=== PATIENT | female | born 1990 | race Two or more races ===

== ENCOUNTER 2017-04-29 12:49 | Inpatient (IN) | payer MEDICAID ==
[~2017-04-29] VITALS: Ht 154.9 cm; Wt 75.3 kg
[2017-04-29] MEDS ORDERED: LIDOCAINE 1% PF 30 ML VIAL. INJ PRN (15:30)
[2017-04-29] MEDS ORDERED: 0.9 % SODIUM CHLORIDE 10 ML DISP.SYRIN. IV PRN ×2 (15:30→20:15)
[2017-04-29] MEDS ORDERED: OXYTOCIN 30 UNIT/500 ML PREMIX 500 ML IV PRN ×3 (15:30→20:15)
[2017-04-29] MEDS ORDERED: IV RINGERS,LACTATED 1000ML 1,000 ML IV PRN (15:30)
[2017-04-29] MEDS ORDERED: fentaNYL PF VIAL 100 MCG/2 ML VIAL IV PRN (15:30)
[2017-04-29 15:45] LABS: BASO % 0 % (0-3); EOS % 0 % (0-3); HEMATOCRIT 33.7 % (36.0-47.0); HEMOGLOBIN 11.2 g/dL (12.0-15.5); LYMPH # 1.5 x10^3/uL (1.0-4.8); LYMPH % 14 % (24-48); MEAN CORPUSCULAR HEMOGLOBIN 30 pg (25-35); MEAN CORPUSCULAR HGB CONC 33 g/dL (31-37); MEAN CORPUSCULAR VOLUME 90 fL (79-100); MONO % 6 % (0-9); NEUT % 80 % (31-73); PLATELET COUNT 170 x10^3/uL (140-400); RED BLOOD COUNT 3.74 x10^6/uL (3.50-5.40); RED CELL DISTRIBUTION WIDTH 14.2 % (11.5-14.5); WHITE BLOOD COUNT 10.7 x10^3/uL (4.0-11.0)
[2017-04-29] MEDS ORDERED: AMPICILLIN SODIUM 2 GM in IV NORMAL SALINE 100ML 100 ML IV ONE (16:00)
[2017-04-29 16:45] VITALS: BP 114/69
[2017-04-29] MEDS ORDERED: AMPICILLIN SODIUM 1 GM in IV NORMAL SALINE 50ML 50 ML IV SCH (20:00)
--- NOTE | 2017-04-29 20:11 | PDOC1 ---
OB - History Hx of Present Care: Good Care Ultrasounds: Normal mid trimester US Obstetrical Complications: None Medical Complications: None Past Family/Social History * Past Medical, Surgical, Family and Obstetric Histories reviewed from chart. Rubella: Immune RPR/VDRL: Negative GBS Status: Negative HBsAG: Negative OB - Chief Complaint & HPI Date of Admission: Date of Admission: Apr 29, 2017 at 12:49 Chief Complaint/History : 3 Para: 2 EGA: 40 Reason for admission: induction of labor Indication for induction: post dates, history of rapid labor Admission Nurse Assessment Rev: Yes Problems: OB - Admission Exam Physical Exam Vitals: VS - Last 72 Hours, by Label Date Time Temp Pulse Resp B/P (MAP) Pulse Ox O2 Delivery O2 Flow Rate FiO2 // 16:45 99.0 86 20 114/69 (84) 99.0 HEENT: Normal Heart: Regular Rate Lungs: Clear Abdomen: Gravid, Non tender, Soft Extremities: Edema Reflexes: Normal Cervical Dilatation: 2cm Effacement: 50% Station: -3 Membranes: Intact Heart Rate: Normal Accelerations: Accelerations Present Decelerations: No decelerations Contractions on Admission: None Text A: 40 wks IUP IOL secondary to post term P: Admit for IOL pitocin. SOTO GRAYSON Jr, MD Apr 29, 2017 20:11
--- NOTE | 2017-04-29 20:12 | PDOC ---
VAGINAL DELIVERY DATE DATE: 04/29/17 TIME: 20:11 : 3 Para: 3 EGA: 40 VAGINAL DELIVERY: VTX VACCUM ASSISTED: No PLACENTA: Spontaneous 8/9 SEX: Male WEIGHT Weight [7 lbs. 14 oz. ] Nuchal Cord: Yes, Times 2 Amniotic Fluid: Clear PAIN: Natural EPISIOTOMY: No EXTENSION: Yes (2nd degree midline laceration) REPAIRED WITH 2-0 Vicryl EBL 300 ml COMPLICATIONS none CONDITION pt. stable Signs of Intrauterine Infectio: None Shoulder Dystocia: No Problems: SOTO GRAYSON Jr, MD Apr 29, 2017 20:12
[2017-04-29] MEDS ORDERED: DOCUSATE SODIUM 100 MG CAPSULE. PO PRN (20:15)
[2017-04-29] MEDS ORDERED: MAGNESIUM HYDROXIDE 2,400 MG/30 ML ORAL.SUSP. PO PRN (20:15)
[2017-04-29] MEDS ORDERED: BENZOCAINE 20% TOPICAL AEROSOL SPRAY 57GM CAN. TP PRN (20:15)
[2017-04-29] MEDS ORDERED: diphenhydrAMINE HCL 25 MG CAPSULE PO PRN (20:15)
[2017-04-29] MEDS ORDERED: ACETAMINOPHEN 325 MG TABLET. PO PRN (20:15)
[2017-04-29] MEDS ORDERED: HYDROCORTISONE 1% TOPICAL OINTMENT 30GM TUBE. TP PRN (20:15)
[2017-04-29] MEDS ORDERED: ZOLPIDEM 5 MG TABLET. PO PRN (20:15)
[2017-04-29] MEDS ORDERED: oxyCODONE/APAP 5/325 1 TAB TABLET PO PRN (20:15)
[2017-04-29] MEDS ORDERED: SIMETHICONE 80 MG TAB.CHEW PO PRN (20:15)
[2017-04-29] MEDS ORDERED: MMR per PROTOCOL. MC PRN (20:15)
[2017-04-29] MEDS ORDERED: IBUPROFEN 800 MG TABLET. PO PRN (20:15)
[2017-04-29] MEDS ORDERED: MAG HYDROX/ALUMINUM HYD/SIMETH 30 ML ORAL.SUSP PO PRN (20:15)
[2017-04-29] MEDS ORDERED: PHENYLEPH/MINERAL OIL/PETROLAT RECTAL OINTMENT 28GM TUBE. RC PRN (20:15)
[2017-04-29] MEDS: IBUPROFEN 800 MG TABLET. PO PRN (22:16)
[2017-04-29 23:14] VITALS: BP 111/66
[2017-04-30 03:07] VITALS: BP 95/55
[2017-04-30 05:54] LABS: BASO % 0 % (0-3); EOS % 0 % (0-3); HEMATOCRIT 29.1 % (36.0-47.0); HEMOGLOBIN 9.7 g/dL (12.0-15.5); LYMPH # 1.5 x10^3/uL (1.0-4.8); LYMPH % 10 % (24-48); MEAN CORPUSCULAR HEMOGLOBIN 30 pg (25-35); MEAN CORPUSCULAR HGB CONC 33 g/dL (31-37); MEAN CORPUSCULAR VOLUME 90 fL (79-100); MONO % 7 % (0-9); NEUT % 84 % (31-73); PLATELET COUNT 145 x10^3/uL (140-400); RED BLOOD COUNT 3.25 x10^6/uL (3.50-5.40); RED CELL DISTRIBUTION WIDTH 14.3 % (11.5-14.5); WHITE BLOOD COUNT 15.3 x10^3/uL (4.0-11.0)
[2017-04-30 06:10] VITALS: BP 100/58
[2017-04-30] MEDS ORDERED: FERROUS SULFATE 325 MG TABLET. PO SCH (08:00)
[2017-04-30 08:23] LABS: % EOS 1 % (0-5); NUCLEATED RBC 1; PLT ESTIMATE ADEQUATE (ADEQUATE)
[2017-04-30 08:29] VITALS: BP 106/64
[2017-04-30 11:20] VITALS: BP 102/67
[2017-04-30 16:40] VITALS: BP 102/61
[2017-04-30] MEDS: IBUPROFEN 800 MG TABLET. PO PRN (19:45)
[2017-04-30 21:00] VITALS: BP 120/76
[2017-05-01 05:16] VITALS: BP 95/58
[2017-05-01] MEDS: IBUPROFEN 800 MG TABLET. PO PRN (13:36)
--- NOTE | 2017-05-01 16:11 | PDOC ---
Provider Note Provider Note late entry 04/30/17 No Complaints VSS uterus NTTP Fu in AM KATIE PIZARRO MD May 01, 2017 16:11
--- NOTE | 2017-05-01 16:12 | PDOC3 ---
OB DISCHARGE SUMMARY DATE OF ADMISSION: 04/29/17 DATE OF DISCHARGE: 05/01/17 REASON FOR ADMISSION: Induction of labor PROCEDURES: None INTRAPARTUM PROCEDURES: Spontanous Vag Deliv OPERATIONS: None DISCHARGE DIAGNOSIS: Term Delivered DISCHARGE INFORMATION: Activity, Diet HOSPITAL COURSE unremarkable CONDITION AT DISCHARGE Stable KATIE PIZARRO MD May 01, 2017 16:12
[2017-05-01] MEDS ORDERED: HYDR-971 PO (16:16)
[2017-05-01] MEDS ORDERED: NAPR500T4 PO (16:16)
[2017-05-01 17:00] VITALS: BP 99/38
== END 2017-05-01 17:50 | disposition home or self-care (01) | DRG 775 ==
LOC: 3 SO LND 12:49 → 3 NORTH 22:37
PROVIDERS: ADMIT Specialist; ATTEND Specialist
PROC: 10E0XZZ Delivery of Products of Conception, External Approach (ICD-10-PCS; principal; 2017-04-29)
PROC: 0KQM0ZZ Repair Perineum Muscle, Open Approach (ICD-10-PCS; 2017-04-29)
PROC: 3E033VJ Introduction of Other Hormone into Peripheral Vein, Percutaneous Approach (ICD-10-PCS; 2017-04-29)
DX: O69.81X0 Labor and delivery complicated by cord around neck, without compression, not applicable or unspecified (principal); O70.1 Second degree perineal laceration during delivery; Z37.0 Single live birth; Z3A.40 40 weeks gestation of pregnancy
CPT/HCPCS: 36415; 85007; 85025; 86593; 86850; 86900; 86901; J0290; J2590; J7120